=== PATIENT | female | born 1975 | race Caucasian/White ===

== ENCOUNTER 2019-01-18 06:22 | Inpatient (IN) | payer BC ==
[2019-01-17] MEDS: LACTATED RINGER'S 1,000 ML IV SCH (21:12)
--- NOTE | 2019-01-17 21:28 | HP ---
Date/Time of Note Date/Time of Note DATE: 01/17/19 TIME: 21:16 Assessment/Plan VTE Prophylaxis SCD applied (from Nsg): Yes Pharmacological prophylaxis: NA/contraindicated Pharm contraindication: low risk/ambulating Lines/Catheters IV Catheter Type (from Nrsg): Peripheral IV Urinary Cath still in place: Yes Reason Cath still needed: other (indicate) (for 24 hours after surgery) Assessment/Plan Assessment/Plan A: Custodial pelvic pain and menometrorrhagia, unresponsive to medical management. P: Total abdominal hysterectomy. HPI/ROS Admit Date/Time Admit Date/Time January 18, 2019 Hx of Present Illness 43 y.o. A3 s/p Essure placement and s/p left salpingoophorectomy is admitted for a total abdominal hysterectomy for definitive treatment of ongoing pelvic pain issues and ongoing menometrorrhagia. ROS Constitutional: no complaints Respiratory: no complaints Cardiovascular: no complaints Gastrointestinal: no complaints Musculoskeletal: no complaints Neurologic: no complaints Psychological: no complaints, nl mood/affect PMH/Family/Social Past Medical History H/o kidney stones. Asthma. Migraines. Tinnitus. Osteopenia. Elevated BMI. Medications HCTZ. Allopurinol. Claritin. Propranolol prn. Omeprazole. Flonase. Coded Allergies: latex (Verified Allergy, Severe, 07/22/11) amoxicillin (Verified Allergy, Unknown, SWELLING, RASH, 03/02/16) erythromycin base (Verified Allergy, Unknown, 07/22/11) morphine (Verified Allergy, Unknown, PUFFY, RED, SWOLLEN, 07/22/11) Past Surgical History Cholecystectomy. Essure placement. x 2. LSC left salpingoophorectomy. Past Surgical Hx: cholecystectomy Family History Significant Family History: no pertinent family hx Social History Alcohol Use: occasionally Smoking Status: Never smoker Drug Use: none Exam/Review of Systems Vital Signs Vitals BP 110/80 Exam Constitutional: alert, oriented, well developed Psych: no complaints, nl mood/affect Respiratory: clear to auscultation, normal air movement Cardiovascular: regular rate and rhythm, nl pulses Gastrointestinal: soft, nl liver, spleen, non-tender Genitourinary - Female: nl external genitalia Musculoskeletal: nl extremities to inspection, nl gait and stance Neurological: nl mental status, nl speech, nl strength LILY DUARTE MD Jan 17, 2019 21:26
[~2019-01-18] VITALS: Ht 172.7 cm; Wt 97.5 kg
[2019-01-18] VITALS (15 sets, daily range): BP systolic 96–134; BP diastolic 55–87; PULSE 64–92; RESP 14–22; Ht 172.7 cm; Wt 97.5 kg
[2019-01-18] MEDS: LACTATED RINGER'S 1,000 ML IV SCH (05:12)
[~2019-01-18 06:22] MED LIST: ALLO300T2 ORAL; ALLOPURINOL PO; HYDR12.58 ORAL; IBUP800T48 PO; OXYC-438 PO; POTA10TA18 ORAL; VILA20TA ORAL
[2019-01-18] MEDS ORDERED: metroNIDAZOLE 500 MG/NS (PMX) 100 ML IVPB ONE (07:00)
[2019-01-18] MEDS ORDERED: CIPROFLOXACIN 400MG/D5W 200 ML IVPB ONE (07:00)
--- NOTE | 2019-01-18 07:41 | PREAC ---
Date/Time of Note Date/Time of Note DATE: 01/18/19 TIME: 07:38 Anesthesia Eval and Record Evaluation Time Pre-Procedure Interview DATE: 01/18/19 TIME: 07:38 Age 43 Sex female NPO: 8 hrs Preoperative diagnosis pelvic pain Planned procedure total abdominal hysterectomy, right salpingooophorectomy Past Medical History Past Medical History: Includes Pulm: Asthma Neuro: Other (migraines) GI: Obesity Surgery & Anesthesia Issues No known issue Meds Anticoagulation: No Beta Vanessa within 24 hr: No Reason Beta Vanessa not given: Pt. not on B-Vanessa Reported Medications Vilazodone Hcl (Viibryd) 20 Mg Tablet, 1 TAB ORAL DAILY @1200 01/18/19 Hydrochlorothiazide* (Hydrochlorothiazide*) 12.5 Mg Tablet, 1 TAB ORAL DAILY 01/18/19 Allopurinol* (Allopurinol*) 300 Mg Tablet, 1 TAB ORAL DAILY 01/18/19 Potassium Citrate* (Potassium Citrate* ER) 10 Meq Tablet.sa, 1 TAB ORAL DAILY 01/18/19 Discontinued Reported Medications [Allopurinol] No Conflict Check, PO BID 03/02/16 Current Medications Lactated Ringer's 1,000 ml @ 125 mls/hr Q8H IV ; Start 01/17/19 at 21:12 Ciprofloxacin/ Dextrose 200 ml @ 200 mls/hr PRE-OP ONCE IVPB ; Start 01/18/19 at 07:00; Stop 01/18/19 at 07:59 Metronidazole 100 ml @ 100 mls/hr PRE-OP ONCE IVPB ; Start 01/18/19 at 07:00; Stop 01/18/19 at 07:59 Meds reviewed: Yes Allergies Coded Allergies: latex (Verified Allergy, Severe, 01/18/19) amoxicillin (Verified Allergy, Unknown, SWELLING, RASH, 01/18/19) erythromycin base (Verified Allergy, Unknown, 01/18/19) morphine (Verified Allergy, Unknown, PUFFY, RED, SWOLLEN, 01/18/19) Allergies Reviewed: Yes Labs/Studies Labs Reviewed: Reviewed by anesthesiologist test: Negative Pre-procedure Exam Last vitals Vital Signs Date Temp Pulse Resp B/P (MAP) Pulse Ox O2 O2 Flow FiO2 Time Delivery Rate 01/18/19 98.2 84 18 124/71 97 Room Air 07:22 (88) Airway: Adequate mouth opening, Adequate thyromental dist Mallampati: Mallampati II Teeth: Normal Lung: Normal Heart: Normal ASA Physical Status ASA physical status: 2 Emergency: None Planned Anesthetic General/MAC: ETT Neuraxial: Spinal Planned Pain Management Sub-arachniod narcotics Pre-operative Attestations Prior to commencing anesthesia and surgery, the patient was re-evaluated, there was verification of: *The patient's identity *The results of appropriate recent lab work and preoperative vital signs *The above evaluation not changing prior to induction *Anesthetic plan, risk benefits, alternative and complications discussed with patient/family; questions answered; patient/family understands, accepts and wishes to proceed. HILDA SANDERSON Jan 18, 2019 07:41
[2019-01-18] MEDS ORDERED: MIDAZOLAM 1 MG/ML 2 ML INJ ONE (07:51)
[2019-01-18] MEDS ORDERED: ROCURONIUM 50 MG INJ ONE ×2 (07:51→07:54)
[2019-01-18] MEDS ORDERED: EPINEPHrine 1 MG INJ ONE (07:54)
[2019-01-18] MEDS ORDERED: PROPOFOL 20 ML ONE (07:54)
[2019-01-18] MEDS ORDERED: LIDOCAINE 2% (SDV) 5 ML INJ ONE (07:54)
[2019-01-18] MEDS ORDERED: DEXAMETHASONE 4 MG/ML 5 ML INJ ONE (09:08)
[2019-01-18] MEDS ORDERED: ONDANSETRON 4 MG INJ ONE (09:09)
[2019-01-18] MEDS ORDERED: NEOSTIGMINE 3 MG/3 ML SYRINGE ONE (10:44)
[2019-01-18] MEDS ORDERED: GLYCOPYRROLATE 0.4 MG INJ ONE (10:44)
[2019-01-18] MEDS ORDERED: CEFAZOLIN 1 GM INJ ONE (10:45)
--- NOTE | 2019-01-18 11:04 | PAC ---
Date/Time of Note Date/Time of Note DATE: 01/18/19 TIME: 11:03 Post-Anesthesia Notes Post-Anesthesia Note Last documented vital signs Vital Signs Date Temp Pulse Resp B/P (MAP) Pulse Ox O2 O2 Flow FiO2 Time Delivery Rate 01/18/19 98.2 84 18 124/71 97 Room Air 1103 (88) Activity: WNL Respiratory function: WNL Cardiovascular function: WNL Mental status: Baseline Pain reasonably controlled: Yes Hydration appropriate: Yes Nausea/Vomiting absent: Yes HILDA SANDERSON Jan 18, 2019 11:04
[2019-01-18] MEDS ORDERED: HYDROmorphONE 1 MG/5 ML IV SYRINGE IV ONE (11:09)
[2019-01-18] MEDS: HYDROmorphONE 1 MG/5 ML IV SYRINGE IV PRN ×2 (11:13→11:19)
[2019-01-18] MEDS ORDERED: ONDANSETRON 4 MG INJ IV PRN ×2 (11:30→14:30)
[2019-01-18] MEDS ORDERED: KETOROLAC 30 MG INJ IV PRN ×2 (11:30→14:30)
[2019-01-18] MEDS ORDERED: hydrALAzine 20 MG INJ IV PRN (11:30)
[2019-01-18] MEDS ORDERED: MEPERIDINE 25 MG INJ IV PRN (11:30)
[2019-01-18] MEDS ORDERED: OXYCODONE/ACETAMINOPHEN (5/325) TAB PO PRN ×2 (11:30)
[2019-01-18] MEDS ORDERED: EPHEDrine 25 MG/5 ML SYG IV PRN (11:30)
[2019-01-18] MEDS ORDERED: MIDAZOLAM 1 MG/ML 2 ML INJ IV PRN (11:30)
[2019-01-18] MEDS ORDERED: DIPHENHYDRAMINE 50 MG INJ IV PRN (11:30)
[2019-01-18] MEDS ORDERED: LABETALOL HCL 20MG INJ IV PRN (11:30)
[2019-01-18] MEDS ORDERED: METOCLOPRAMIDE 10 MG INJ IV PRN (11:30)
[2019-01-18] MEDS ORDERED: ALBUTEROL 0.083% (NEB) 2.5 MG/3 ML AMP HHN PRN (11:30)
[2019-01-18] MEDS ORDERED: HYDROmorphONE 1 MG/5 ML IV SYRINGE IV PRN ×2 (11:30)
[2019-01-18] MEDS ORDERED: FENTAnyl 50 MCG/ML VIAL IV PRN ×2 (11:30)
[2019-01-18] MEDS: FENTAnyl 50 MCG/ML VIAL IV PRN ×2 (12:02→12:13)
--- NOTE | 2019-01-18 12:34 | PREAC ---
Date/Time of Note Date/Time of Note DATE: 01/18/19 TIME: 12:33 Anesthesia Eval and Record Evaluation Time Pre-Procedure Interview DATE: 01/18/19 TIME: 12:33 Age 43 Sex female NPO: 8 hrs Preoperative diagnosis bladder tumor Planned procedure cystoscopy with bladder bx Past Medical History Past Medical History: None Surgery & Anesthesia Issues No known issue Meds Anticoagulation: No Beta Vanessa within 24 hr: No Reason Beta Vanessa not given: Pt. not on B-Vanessa Reported Medications Vilazodone Hcl (Viibryd) 20 Mg Tablet, 1 TAB ORAL DAILY @1200 01/18/19 Hydrochlorothiazide* (Hydrochlorothiazide*) 12.5 Mg Tablet, 1 TAB ORAL DAILY 01/18/19 Allopurinol* (Allopurinol*) 300 Mg Tablet, 1 TAB ORAL DAILY 01/18/19 Potassium Citrate* (Potassium Citrate* ER) 10 Meq Tablet.sa, 1 TAB ORAL DAILY 01/18/19 Discontinued Reported Medications [Allopurinol] No Conflict Check, PO BID 03/02/16 Current Medications Lactated Ringer's 1,000 ml @ 125 mls/hr Q8H IV ; Start 01/17/19 at 21:12 Ciprofloxacin/ Dextrose 200 ml @ 200 mls/hr PRE-OP ONCE IVPB ; Start 01/18/19 at 07:00; Stop 01/18/19 at 07:59 Metronidazole 100 ml @ 100 mls/hr PRE-OP ONCE IVPB ; Start 01/18/19 at 07:00; Stop 01/18/19 at 07:59 Meds reviewed: Yes Allergies Coded Allergies: latex (Verified Allergy, Severe, 01/18/19) amoxicillin (Verified Allergy, Unknown, SWELLING, RASH, 01/18/19) erythromycin base (Verified Allergy, Unknown, 01/18/19) morphine (Verified Allergy, Unknown, PUFFY, RED, SWOLLEN, 01/18/19) Allergies Reviewed: Yes Labs/Studies Labs Reviewed: Reviewed by anesthesiologist Blood Bank Test 01/18/19 07:07 Antibody Screen NEGATIVE Blood Type O POSITIVE test: Negative Pre-procedure Exam Last vitals Vital Signs Date Temp Pulse Resp B/P (MAP) Pulse Ox O2 O2 Flow FiO2 Time Delivery Rate 01/18/19 98.2 84 18 124/71 97 Room Air 07:22 (88) Airway: Adequate mouth opening, Adequate thyromental dist Mallampati: Mallampati II Teeth: Normal Lung: Normal Heart: Normal ASA Physical Status ASA physical status: 2 Emergency: None Planned Anesthetic General/MAC: LMA Planned Pain Management Parenteral pain med Pre-operative Attestations Prior to commencing anesthesia and surgery, the patient was re-evaluated, there was verification of: *The patient's identity *The results of appropriate recent lab work and preoperative vital signs *The above evaluation not changing prior to induction *Anesthetic plan, risk benefits, alternative and complications discussed with patient/family; questions answered; patient/family understands, accepts and wishes to proceed. HILDA SANDERSON Jan 18, 2019 12:34
--- NOTE | 2019-01-18 13:48 | OPR ---
Date/Time of Note Date/Time of Note DATE: 01/18/19 TIME: 13:19 Operative Report Free Text/Dictation Procedure Date: Jan 18, 2019 Preoperative Diagnosis Pelvic pain, menometrorrhagia. Postoperative Diagnosis Same plus erosion of left Essure through the tube. Operation/Procedure Performed Total abdominal hysterectomy. Surgeon see signature line Drive In Teller Bobbi Ruelas MD Anesthesia Type: general Anesthesiologist: HILDA SANDERSON Estimated Blood Loss: 100 - 150 ml's Transfusion none Specimen Uterus, cervix, right tube. Grafts/Implants none Complications none Pt Condition Post Procedure: stable Disposition: PACU Procedure Description The patient was brought to the operating room and placed on the operating room table and was given a spinal block with Duramorph and then placed under general anesthesia. A vaginal prep was done. A Devi catheter was placed and then she was prepped and draped in the usual sterile fashion. A Pfannenstiel incision was made using a knife through the skin and subcutaneous tissue at the site of her old scar, down to the level of fascia. Fascia was incised and extended bilaterally using Bovie cautery and scissors. The superior edge of the fascia was grasped with Desmond clamps and the rectus muscles were from the overlying fascia using blunt dissection and Bovie cautery. The anterior peritoneum was bluntly entered using the surgeon's fingers and then stretched open with hands. The retractor was placed and packing with moist laps to keep the bowel out of the way. The uterus was small with a normal contour. The fundus was grasped with a double tooth tenaculum and elevated up through the incision. Placed 2 Pean clamps around the pedicles on each side of the uterus and used another Pean to grasp the round ligament. Cut the round ligament with cautery and suture ligated the stump on each side, developed the bladder flap and then pushed the bladder away using a sponge stick. A window was then made in the broad ligament on each side using the surgeon's fingers and then a Pean clamp was placed from the pedicles down to the opening and the tissue was then cut. On the right, this was proximal to the ovary. The ovary is being left in place. The left is absent. The pedicle on each side was then suture ligated and also a free tie was placed around the stump after each as well. Skeletonized the uterine vessels on each side, clamped the vessels with a straight Concepcion clamp, then cut and suture ligated the uterine vessels. The surgery proceeded with clamping, cutting and suture ligating the uterine vasculature on each side down to the level of the cervix and pushing the bladder away as needed, I was then able to enter the vagina anteriorly using a knife. The edges were grasped with a Desmond clamp and then proceeded to cut out the cervix with Rustam scissors. The cuff was closed with 0 vicryl suture with excellent hemostasis noted. The right tube was also removed, elevating the tube with a Maureen clamp and placing a Pean clamp along the base cutting off the tube and suture ligating the stump. The pelvis was then irrigated well. The cuff was dry. The broad ligament was dry. The ovary appeared very normal. There was a cyst that was punctured with the cautery. Interceed was wrapped around the ovary. The ovary naturally stayed well out of the pelvis. Packing was then removed. The retractor was then removed. The count was performed and was correct for instruments and laps. The anterior peritoneum was then closed using 2-0 chromic in a running stitch. The rectus muscles were brought back together at midline with interrupted [id number] sutures of the same material. The underbelly of the fascia was examined and noted to be dry. The fascia was then closed using 0 Vicryl suture in a running stitch from each lateral edge to midline with overlap at the midline. Subcutaneous tissue was irrigated well, cautery applied where needed for hemostasis. The subcutaneous layer was closed using 2-0 chromic suture in a running stitch. The skin was then closed with 3-0 Monocryl in a subcuticular stitch with excellent tissue approximation and hemostasis. Mastisol and Steri-Strips were placed and a pressure dressing was applied overall. The patient tolerated the procedure very well and was brought to the recovery room in excellent condition. LILY DUARTE MD Jan 18, 2019 13:33
[2019-01-18] MEDS: OXYCODONE/ACETAMINOPHEN (5/325) TAB PO PRN ×3 (15:22→23:16)
[2019-01-18] MEDS: DIPHENHYDRAMINE 50 MG INJ IV PRN (18:02)
[2019-01-19 02:00] VITALS: BP 112/65; PULSE 84; RESP 16
[2019-01-19] MEDS: DIPHENHYDRAMINE 50 MG INJ IV PRN ×2 (06:42→14:31)
[2019-01-19] MEDS: OXYCODONE/ACETAMINOPHEN (5/325) TAB PO PRN ×3 (06:58→21:37)
[2019-01-19 07:54] VITALS: BP 93/51; PULSE 87; RESP 20
[2019-01-19] MEDS: HYDROCHLOROTHIAZIDE 12.5 MG CAP PO SCH (09:00)
[2019-01-19] MEDS: POTASSIUM CITRATE (SR) 5 MEQ TAB PO SCH (09:00)
[2019-01-19] MEDS: ALLOPURINOL 300 MG TAB PO SCH (09:13)
[2019-01-19 10:14] VITALS: BP 107/63; PULSE 77; RESP 20
--- NOTE | 2019-01-19 10:54 | QN ---
Documentation Comment POD #1 Pt reports that she feels much better now that the Duramorph has worn off? She reports that it made her pain worse. She had some nausea this AM but better after Zofran. No vomiting. No ready to have the drake out. T= 98.1 BP 107/63 Abdomen soft, nondistended. Dressing dry and intact. Ext; NT. no edema. P: Continue care. Will advance diet to regular for dinner and continue clears for now. D/C drake later today. Encourage at least sitting on the side of the bed. Changed the Motrin 800 to start now as it was for 2 days from now? Pt will need less narcotics. LILY DUARTE MD Jan 19, 2019 10:54
[2019-01-19] MEDS: IBUPROFEN 800 MG TAB PO SCH ×3 (12:56→23:34)
[2019-01-19 13:58] VITALS: BP 103/68; PULSE 88; RESP 20
[2019-01-19 20:08] VITALS: BP 109/70; PULSE 93; RESP 19
[2019-01-20] MEDS: IBUPROFEN 800 MG TAB PO SCH ×4 (05:49→23:14)
[2019-01-20 08:06] VITALS: BP 111/72; PULSE 90; RESP 20
[2019-01-20] MEDS: POTASSIUM CITRATE (SR) 5 MEQ TAB PO SCH (09:00)
[2019-01-20] MEDS: HYDROCHLOROTHIAZIDE 12.5 MG CAP PO SCH (10:33)
[2019-01-20] MEDS: ALLOPURINOL 300 MG TAB PO SCH (10:35)
[2019-01-20] MEDS: OXYCODONE/ACETAMINOPHEN (5/325) TAB PO PRN ×3 (11:05→23:14)
[2019-01-20 13:24] VITALS: BP 120/77; PULSE 90; RESP 20
[2019-01-20 19:30] VITALS: BP 106/64; PULSE 83; RESP 18
--- NOTE | 2019-01-20 21:16 | QN ---
Documentation Comment POD #2 Pt just started to get up in the afternoon and still moving very slow. Is feeling better but not ready for d/c. Tolerating a regular diet. Has a migraine. T= 99. BP 106/64 Abdomen soft, non-distended. Dressing removed and there entire area looks fine except for a raw area on the right edge of the incision due to adhesive. Area cleaned and a gel patch applied and then covered with a large bandaid. Ext NT, no edema. P: Imitrex for the migraine. Continue care and hopefully by the AM the pt is more fully ambulatory and ready for d/c. LILY DUARTE MD Jan 20, 2019 21:16
[2019-01-20] MEDS ORDERED: SUMATRIPTAN 50 MG TAB PO PRN (22:00)
[2019-01-20] MEDS ORDERED: DIPHENHYDRAMINE 25 MG CAP PO PRN (23:55)
[2019-01-21 01:29] VITALS: BP 106/63; PULSE 73; RESP 17
[2019-01-21] MEDS: IBUPROFEN 800 MG TAB PO SCH ×2 (05:35→12:33)
[2019-01-21] MEDS: OXYCODONE/ACETAMINOPHEN (5/325) TAB PO PRN ×2 (05:35→11:01)
[2019-01-21 08:00] VITALS: BP 117/78; PULSE 88; RESP 20
[2019-01-21] MEDS: HYDROCHLOROTHIAZIDE 12.5 MG CAP PO SCH (08:19)
[2019-01-21] MEDS: ALLOPURINOL 300 MG TAB PO SCH (08:19)
[2019-01-21] MEDS: POTASSIUM CITRATE (SR) 5 MEQ TAB PO SCH (09:00)
--- NOTE | 2019-01-21 10:37 | PD.PPDC ---
CARDIAC CARE UNIT NURSE Discharge Instruction Condition [id number] Patient Condition: Gswbs2t Good Diet [id number] Diet: Hzsey0g Resume Regular Diet Activity/Restrictions [id number] Activity: [id number] Bedrest May be up to bathroom May be up for meals May Shower [id number] Restrictions: Nezif9f No Exercising No Lifting No Driving Minimize Walking Minimize Stair-climbing No Sexual Activity Nothing in the Vagina No [place] No Tampons, douche Wound/Drain Care Instructions [id number] Wound/Drain Care [id number] Remove Steri Strips in 2 Instructions: weeks Keep clean and dry Follow-up Follow-up with Physician: 2, Week/Weeks Return to clinic for [id number] 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
--- NOTE | 2019-01-21 10:46 | DS ---
Date/Time of Note Date/Time of Note DATE: 01/21/19 TIME: 10:43 Discharge Summary Admission/Discharge Info Admit Date/Time Jan 18, 2019 at 06:22 Discharge Date/Time January 21, 2019 Discharge Diagnosis Pelvic pain, menometrorrhagia Patient Condition: Good Procedures Total abdominal hysterectomy Hx of Present Illness 43 y.o. A3 s/p Essure placement and s/p left salpingoophorectomy is admitted for a total abdominal hysterectomy for definitive treatment of ongoing pelvic pain issues and ongoing menometrorrhagia. Hospital Course Pt did well postoperatively albeit had an adverse reaction to a spinal block given pre-operatively for postoperative care that made her not feel well and s lowed her ability to get up on POD #1. Her drake was taken out at the end of POD #1 and on POD #2 she had a migraine and was not moving much but by day #3 she was completely better and ready for d/c. Home Meds Reported Medications Vilazodone Hcl (Viibryd) 20 Mg Tablet, 1 TAB ORAL DAILY @1200 01/18/19 Hydrochlorothiazide* (Hydrochlorothiazide*) 12.5 Mg Tablet, 1 TAB ORAL DAILY 01/18/19 Allopurinol* (Allopurinol*) 300 Mg Tablet, 1 TAB ORAL DAILY 01/18/19 Potassium Citrate* (Potassium Citrate* ER) 10 Meq Tablet.sa, 1 TAB ORAL DAILY 01/18/19 Discontinued Reported Medications [Allopurinol] No Conflict Check, PO BID 03/02/16 Follow-up Plan Follow up appt with the doctor in 2 weeks. Primary Care Provider Agusto Snow MD Time spent on discharge: < 30 minutes Pending Labs Laboratory Tests Test 01/21/19 05:29 White Blood Count 5.7 10^3/ul (4.8-10.8) Red Blood Count 4.15 10^6/ul (4.20-5.40) Hemoglobin 11.3 g/dl (12.0-16.0) Hematocrit 36.5 % (37.0-47.0) Mean Corpuscular Volume 88.0 fl (82.0-101.0) Mean Corpuscular Hemoglobin 27.2 pg (29.0-33.0) Mean Corpuscular Hemoglobin Concent 31.0 g/dl (32.0-37.0) Red Cell Distribution Width 12.9 % (11.5-14.5) Platelet Count 171 10^3/UL (140-415) Mean Platelet Volume 9.7 fl (7.4-10.4) Immature Granulocytes % 0.500 % (0.001-0.429) Neutrophils % 60.3 % (39.0-77.0) Lymphocytes % 29.0 % (15.0-51.0) Monocytes % 9.6 % (0.0-11.0) Eosinophils % 0.2 % (0.0-7.0) Basophils % 0.4 % (0.0-2.0) Nucleated Red Blood Cells % 0.0 /100WBC (0.0-0.0) Immature Granulocytes # 0.030 10^3/ul (0.0-0.031) Neutrophils # 3.4 10^3/ul (1.6-7.5) Lymphocytes # 1.6 10^3/ul (0.8-2.9) Monocytes # 0.5 10^3/ul (0.3-0.9) Eosinophils # 0.0 10^3/ul (0.0-0.5) Basophils # 0.0 10^3/ul (0.0-0.1) Nucleated Red Blood Cells # 0.0 10^3/ul (0.0-0.0) LILY DUARTE MD Jan 21, 2019 10:46
[2019-01-21 13:24] VITALS: BP 120/74; PULSE 88; RESP 20
[2019-01-21] MEDS ORDERED: IBUPROFEN 800 MG TAB PO SCH (18:00)
== END 2019-01-21 14:20 | disposition home or self-care (01) | DRG 982 ==
LOC: REC 06:22 → EDSTATUS 08:00 → 2NE 13:31
PROVIDERS: ADMIT Obstetrics & Gynecology; ATTEND Obstetrics & Gynecology
PROC: 0UB50ZZ Excision of Right Fallopian Tube, Open Approach (ICD-10-PCS; 2019-01-18)
PROC: 0UT90ZZ Resection of Uterus, Open Approach (ICD-10-PCS; principal; 2019-01-18 08:00)
DX: R10.2 Pelvic and perineal pain (principal); T83.89XA Other specified complication of genitourinary prosthetic devices, implants and grafts, initial encounter; N92.1 Excessive and frequent menstruation with irregular cycle; G43.909 Migraine, unspecified, not intractable, without status migrainosus; Y76.8 Miscellaneous obstetric and gynecological devices associated with adverse incidents, not elsewhere classified; T41.45XA Adverse effect of unspecified anesthetic, initial encounter; Y92.239 Unspecified place in hospital as the place of occurrence of the external cause; Z90.79 Acquired absence of other genital organ(s); Z90.721 Acquired absence of ovaries, unilateral
CPT/HCPCS: 84703; 85025; 86850; 86900; 86901; 87086; 88305; 94664; J0171; J0690; J0744; J1100; J1170; J1200; J1885; J2250; J2405; J2710; J3010; J7120